=== PATIENT | male | born 1980 | race Caucasian/White ===

== ENCOUNTER 2016-11-23 16:48 | Observation (INO) | payer MEDICAID, OTHER ==
[2016-11-23] MEDS ORDERED: NS 1,000 ML IV ONE (17:15)
[2016-11-23] MEDS ORDERED: fentaNYL 100 MCG/2 ML INJ IVP ONE (17:15)
--- NOTE | 2016-11-23 17:17 | EDPHY ---
H & P Time Seen by Provider: 11/23/16 17:06 HPI/ROS: CHIEF COMPLAINT: Abdominal pain HISTORY OF PRESENT ILLNESS: 36-year-old male presents to the emergency department with right lower quadrant abdominal pain that began when he woke up this morning. Patient states that the pain is constant and getting worse. He denies flank pain. Denies testicular pain. Denies chest pain or difficulty breathing. Feels slightly nauseous although no vomiting. No diarrhea. Normal bowel movement today. No urinary symptoms. No reported trauma. He has never had pain like this in the past. REVIEW OF SYSTEMS: Constitutional: No fever, no chills. Eyes: No double or blurry vision. ENT: No sore throat. Respiratory: No cough, no shortness of breath. Cardiac: No chest pain. Gastrointestinal: Abdominal pain as above. No vomiting or diarrhea. Genitourinary: No dysuria. Musculoskeletal: No neck or back pain. Skin: No rashes. Neurological: No headache. Past Medical/Surgical History: Negative Social History: Single Smoking Status: Current some day smoker Physical Exam: General Appearance: Alert, no distress. Blood pressure 157/103, temperature 36.5degrees Eyes: Pupils equal and round. Extraocular motions are all intact. ENT: Mouth: Mucous membranes moist. Respiratory: No wheezing, rhonchi, or rales, lungs are clear to auscultation. Cardiovascular: Regular rate and rhythm. Gastrointestinal: Abdomen is soft. Tender to palpate especially in the right lower quadrant. There is no rebound, guarding or masses noted. No CVA tenderness bilaterally. Neurological: Alert and oriented x 3, cranial nerves II through XII grossly intact Skin: Warm and dry, no rashes. Musculoskeletal: Nontender to palpate along the cervical, thoracic or lumbar spine. Neck is supple. Extremities: Full range of motion and no peripheral edema. Psychiatric: Patient is oriented X 3, there is no agitation. Constitutional: Initial Vital Signs Temperature (C) 36.5 C 11/23/16 16:52 Heart Rate 82 11/23/16 16:52 Respiratory Rate 16 11/23/16 16:52 Blood Pressure 157/103 H 11/23/16 16:52 O2 Sat (%) 97 11/23/16 16:52 O2 Delivery Mode Room Air Allergies/Adverse Reactions: erythromycin base [Erythromycin Base] Allergy (Verified 10/31/13 10:06) Home Medications: Medication Instructions Recorded Adderall 10 MG (*) 11/23/16 Medical Decision Making - Diagnostics Imaging Results: Imaging Impressions Abdomen CT 11/23/16 18:42 Impression: No evidence for appendicitis. Results called and discussed with Pam Monaco on 11/23/2016 at 20:30 Imaging: Discussed imaging studies w/ health information systems technician Radiologist ED Course/Re-evaluation: 36-year-old male presents to the emergency department by private vehicle complaining of right lower quadrant abdominal pain. I was concerned about possible acute appendicitis. I recommended CT imaging of the abdomen and pelvis. I discussed pros and cons including radiation exposure. Under the patient agrees with CT scan. CT imaging of the abdomen pelvis revealed a possible normal appearing appendix. The patient did have elevated white blood cell count of nearly 16,000. He required IV pain medication including fentanyl and Dilaudid IV. I asked Dr. Jeremiah Sanford to come evaluate the patient since the patient was still symptomatic with inconclusive CT scan. Dr. Jeremiah Sanford feels that he has early acute appendicitis is taking the patient to the operating room. Patient was given 1 g of IV Invanz in the emergency department. Patient was kept NPO throughout his stay in the emergency department. The case was discussed with Dr. Lynn Gilmore, supervising physician, who did not directly evaluate the patient but agrees with treatment and plan. Differential Diagnosis: Including but not limited to acute appendicitis, mesenteric adenitis, diverticulitis, renal colic, kidney stone, urinary tract infection, pyelonephritis, muscular spasm, constipation, bowel obstruction - Data Points Laboratory Results: Laboratory Results 11/23/16 18:15 11/23/16 18:15 11/23/16 11/23/16 11/23/16 19:27 18:16 18:15 WBC RBC Hgb POC Hgb 17.3 gm/dL gm/dL (13.7-17.5) Hct POC Hct 51 % % (40-51) MCV MCH MCHC RDW Plt Count MPV Neut % (Auto) Lymph % (Auto) [place] % (Auto) Eos % (Auto) Baso % (Auto) Nucleat RBC Rel Count Absolute Neuts (auto) Absolute Lymphs (auto) Absolute Monos (auto) Absolute Eos (auto) Absolute Basos (auto) Absolute Nucleated RBC Immature Gran % Immature Gran # POC Sodium 142 mEq/L mEq/L (134-144) Sodium 138 mEq/L mEq/L (134-144) POC Potassium 4.3 mEq/L mEq/L (3.3-5.0) Potassium 4.5 mEq/L mEq/L (3.5-5.2) POC Chloride 102 mEq/L mEq/L (97-110) Chloride 103 mEq/L mEq/L (97-110) Carbon Dioxide 21 mEq/l L mEq/l (22-31) Anion Gap 14 mEq/L mEq/L (8-16) POC BUN 16 mg/dL mg/dL (7-23) BUN 15 mg/dL mg/dL (7-23) Creatinine 0.8 mg/dL mg/dL (0.7-1.3) POC Creatinine 0.9 mg/dL mg/dL (0.7-1.3) Estimated GFR > 60 Glucose 86 mg/dL mg/dL (70-100) POC Glucose 93 mg/dL mg/dL (70-100) Calcium 9.9 mg/dL mg/dL (8.5-10.4) Urine Color YELLOW Urine Appearance CLEAR Urine pH 6.0 (5.0-7.5) Ur Specific [place] 1.014 (1.002-1.030) Urine Protein NEGATIVE (NEGATIVE) Urine Ketones NEGATIVE (NEGATIVE) Urine Blood NEGATIVE (NEGATIVE) Urine Nitrate NEGATIVE (NEGATIVE) Urine Bilirubin NEGATIVE (NEGATIVE) Urine Urobilinogen NEGATIVE EU EU (0.2-1.0) Ur Leukocyte Esterase NEGATIVE (NEGATIVE) Urine RBC 3-5 /hpf H /hpf (0-3) Urine WBC 1-3 /hpf /hpf (0-3) Ur Epithelial Cells NONE SEEN /lpf /lpf (NONE-1+) Urine Glucose NEGATIVE (NEGATIVE) 11/23/16 18:15 WBC 15.85 10^3/uL H 10^3/uL (3.80-9.50) RBC 5.23 10^6/uL 10^6/uL (4.40-6.38) Hgb 15.8 g/dL g/dL (13.7-17.5) POC Hgb Hct 48.4 % % (40.0-51.0) POC Hct MCV 92.5 fL fL (81.5-99.8) MCH 30.2 pg pg (27.9-34.1) MCHC 32.6 g/dL g/dL (32.4-36.7) RDW 11.9 % % (11.5-15.2) Plt Count 228 10^3/uL 10^3/uL (150-400) MPV 10.8 fL fL (8.7-11.7) Neut % (Auto) 86.4 % H % (39.3-74.2) Lymph % (Auto) 4.9 % L % (15.0-45.0) [place] % (Auto) 7.2 % % (4.5-13.0) Eos % (Auto) 0.5 % L % (0.6-7.6) Baso % (Auto) 0.3 % % (0.3-1.7) Nucleat RBC Rel Count 0.0 % % (0.0-0.2) Absolute Neuts (auto) 13.70 10^3/uL H 10^3/uL (1.70-6.50) Absolute Lymphs (auto) 0.77 10^3/uL L 10^3/uL (1.00-3.00) Absolute Monos (auto) 1.14 10^3/uL H 10^3/uL (0.30-0.80) Absolute Eos (auto) 0.08 10^3/uL 10^3/uL (0.03-0.40) Absolute Basos (auto) 0.05 10^3/uL 10^3/uL (0.02-0.10) Absolute Nucleated RBC 0.00 10^3/uL 10^3/uL (0-0.01) Immature Gran % 0.7 % % (0.0-1.1) Immature Gran # 0.11 10^3/uL H 10^3/uL (0.00-0.10) POC Sodium Sodium POC Potassium Potassium POC Chloride Chloride Carbon Dioxide Anion Gap POC BUN BUN Creatinine POC Creatinine Estimated GFR Glucose POC Glucose Calcium Urine Color Urine Appearance Urine pH Ur Specific [place] Urine Protein Urine Ketones Urine Blood Urine Nitrate Urine Bilirubin Urine Urobilinogen Ur Leukocyte Esterase Urine RBC Urine WBC Ur Epithelial Cells Urine Glucose Medications Given: Discontinued Medications Fentanyl (Sublimaze) 50 mcg IVP EDNOW ONE Stop: 11/23/16 17:16 Last Admin: 11/23/16 18:33 Dose: 50 mcg Hydromorphone HCl (Dilaudid) 0.5 mg IVP EDNOW ONE Stop: 11/23/16 19:37 Last Admin: 11/23/16 19:59 Dose: 0.5 mg Hydromorphone HCl (Dilaudid) 0.5 mg IVP EDNOW ONE Stop: 11/23/16 22:17 Last Admin: 11/23/16 22:17 Dose: 0.5 mg Sodium Chloride (Ns) 1,000 mls @ 0 mls/hr IV ONCE ONE PRN Reason: Wide Open Stop: 11/23/16 17:16 Last Admin: 11/23/16 18:32 Dose: 1,000 mls Ertapenem 1 gm/ Sodium (Chloride) 100 mls @ 200 mls/hr IV EDNOW ONE PRN Reason: Protocol Stop: 11/23/16 22:16 Last Admin: 11/23/16 22:15 Dose: 100 mls Point of Care Test Results: 11/23/16 18:16 POC Sodium 142 POC Potassium 4.3 POC Chloride 102 POC BUN 16 POC Creatinine 0.9 POC Glucose 93 Departure - Departure Disposition: To OP Cath/Surgery Clinical Impression: Abdominal pain Qualifiers: Abdominal location: right lower quadrant Qualified Code(s): R10.31 - Right lower quadrant pain Condition: Good
[2016-11-23 18:42] LABS: % IMMATURE GRANULYOCYTES 0.7 % (0.0-1.1); ABSOLUTE IMMATURE GRANULOCYTES 0.11 10^3/uL (0.00-0.10); ADD DIFF? NO; ADD MORPH? NO; ADD SCAN? NO; ATYPICAL LYMPHOCYTE FLAG 0 (0-99); FRAGMENT RBC FLAG 0 (0-99); HEMATOCRIT 48.4 % (40.0-51.0); HEMOGLOBIN 15.8 g/dL (13.7-17.5); LEFT SHIFT FLG 0 (0-99); LIPEMIA HEMOLYSIS FLAG 80 (0-99); MEAN CELL HEMOGLOBIN 30.2 pg (27.9-34.1); MEAN CELL HEMOGLOBIN CONCENTR. 32.6 g/dL (32.4-36.7); MEAN CELL VOLUME 92.5 fL (81.5-99.8); MEAN PLATELET VOLUME 10.8 fL (8.7-11.7); PLATELET CLUMPS FLAG 10 (0-99); PLATELET COUNT 228 10^3/uL (150-400); RED BLOOD CELL COUNT 5.23 10^6/uL (4.40-6.38); RED CELL DISTRIBUTION WIDTH 11.9 % (11.5-15.2)
[2016-11-23 18:58] LABS: ANION GAP 14 mEq/L (8-16); CALCIUM 9.9 mg/dL (8.5-10.4); CARBON DIOXIDE 21 mEq/l (22-31); CHLORIDE 103 mEq/L (97-110); CREATININE 0.8 mg/dL (0.7-1.3); GLOMERULAR FILTRATION RATE > 60; GLUCOSE 86 mg/dL (70-100); POTASSIUM 4.5 mEq/L (3.5-5.2); SODIUM 138 mEq/L (134-144)
[2016-11-23] MEDS ORDERED: HYDROmorphONE/DILAUDID 1 MG/ML SYR IVP ONE ×2 (19:36→22:16)
[2016-11-23] MEDS ORDERED: IOPAMIDOL (ISOVUE-300) 100 ML BTL ONE (19:39)
[2016-11-23 19:44] LABS: COLOR YELLOW; LEUKOCYTE ESTERASE,URINE NEGATIVE (NEGATIVE); NITRITE,URINE NEGATIVE (NEGATIVE)
[2016-11-23] MEDS ORDERED: ERTAPENEM 1 GM in NS 100 ML IV ONE (21:47)
[2016-11-23] MEDS ORDERED: HYDROmorphONE/DILAUDID 1 MG/ML SYR ONE (21:53)
--- NOTE | 2016-11-23 23:09 | PDGENHP ---
History & Physical Chief Complaint: abd pain History of Present Illness: 36 male with rlq pain, tenderness, rebound and wbc 15k/ ct equivocal. admit for lap appe/ risks and options fully discussed Pertinent Past, Social, Family History: phx T&A. meds adderall. all erytromycin. ros -/ fam hx noncontrib. +tob Relevant Physical Exam: afebrile, no acute distress. heent nonicteric, no oral lesions, no nodes. chest clear/ cor rr/ extrem ok. abd tender rlq with rebound , no hernias. gen ok Cardiorespiratory Assessment: imp acute appe despite ct scan/ risks and options and he wishes to proceed. plan lap appe
[2016-11-23] MEDS ORDERED: MIDAZOLAM 2 MG/2 ML VIAL IVP ONE (23:23)
--- NOTE | 2016-11-23 23:24 | PDANEPAE ---
ANE Past Medical History - Pulmonary History Hx Oxygen in Use at Home: No - Endocrine History Hx Diabetes: No ANE Review of Systems Review of systems is: negative - Exercise capacity Exercise capacity: >=4 METS ANE Patient History - Allergies Allergies/Adverse Reactions: erythromycin base [Erythromycin Base] Allergy (Verified 10/31/13 10:06) - Home Medications Home Medications: Adderall 10 MG (*) 11/23/16 [Last Taken Unknown] - NPO status NPO Since - Liquids (Date): 11/23/16 NPO Since - Liquids (Time): 15:00 NPO Since - Solids (Date): 11/23/16 NPO Since - Solids (Time): 11:00 - Smoking Hx Smoking Status: Current some day smoker ANE Labs/Vital Signs - Labs Result Diagrams: 11/23/16 18:15 11/23/16 18:15 - Vital Signs Blood Pressure: 138/74 Heart Rate: 86 Respiratory Rate: 16 O2 Sat (%): 95 Height: 187.96 cm Weight: 104.326 kg ANE Physical Exam - Airway Neck exam: FROM Mallampati Score: Class 2 Mouth exam: normal dental/mouth exam - Pulmonary Pulmonary: no respiratory distress, no rales or rhonchi, clear to auscultation - Cardiovascular Cardiovascular: regular rate and rhythym, no murmur, rub, or gallop - ASA Status ASA Status: II ANE Anesthesia Plan Anesthesia Plan: general endotracheal anesthesia
[2016-11-23] MEDS ORDERED: MIDAZOLAM 2 MG/2 ML VIAL ONE (23:33)
[2016-11-23] MEDS ORDERED: fentaNYL 100 MCG/2 ML INJ ONE ×2 (23:34)
[2016-11-23] MEDS ORDERED: PROPOFOL 200 MG/20 ML VIAL ONE (23:35)
[2016-11-23] MEDS ORDERED: ROCURONIUM 50 MG/5 ML VIAL ONE (23:35)
[2016-11-23] MEDS ORDERED: LIDOCAINE 2% 5 ML SDV ONE (23:35)
[2016-11-23] MEDS ORDERED: KETOROLAC 30 MG/1 ML SDV ONE (23:35)
[2016-11-23] MEDS ORDERED: DEXAMETHASONE 4 MG/ML VIAL ONE ×2 (23:35)
[2016-11-23] MEDS ORDERED: KETAMINE 100 MG/10 ML SYR ONE (23:35)
[2016-11-23] MEDS ORDERED: ONDANSETRON 4 MG/2 ML VIAL ONE (23:35)
[2016-11-23] MEDS ORDERED: SUGAMMADEX SODIUM 200 MG/2 ML VIAL IVP ONE (23:35)
[2016-11-23] MEDS ORDERED: BUPIVACAINE 0.5% 30 ML SDV ONE (23:46)
[2016-11-23] MEDS ORDERED: LR 500 ML IV PRN (23:58)
[2016-11-23] MEDS ORDERED: MEPERIDINE 25 MG/ML SYR IVP PRN (23:58)
[2016-11-23] MEDS ORDERED: HYDROCODONE/APAP 5/325 TAB PO PRN (23:58)
[2016-11-23] MEDS ORDERED: NALOXONE HCL 0.4 MG/ML INJ IVP PRN (23:58)
[2016-11-23] MEDS ORDERED: PROMETHAZINE HCL 25 MG/ML INJ IVP PRN (23:58)
[2016-11-23] MEDS ORDERED: ONDANSETRON 4 MG/2 ML VIAL IVP PRN (23:58)
[2016-11-23] MEDS ORDERED: OXYCODONE/APAP 5/325 TAB PO PRN (23:58)
[2016-11-23] MEDS ORDERED: METOCLOPRAMIDE 10 MG/2 ML VIAL IVP PRN (23:58)
[2016-11-23] MEDS ORDERED: ENALAPRILAT DIHYDRATE 1.25 MG/ML VIAL IVP PRN (23:58)
[2016-11-24] MEDS ORDERED: ROCURONIUM 50 MG/5 ML VIAL ONE (00:19)
[2016-11-24] MEDS ORDERED: ESMOLOL HCL 100 MG/10 ML VIAL IV ONE ×2 (00:22)
--- NOTE | 2016-11-24 00:43 | POSTOPPROG ---
Post Op Note Date of Operation: 11/24/16 Surgeon: Jeremiah Sanford Anesthesiologist: larisa Anesthesia: GET(General Endotracheal) Pre-op Diagnosis: acute appe Post-op Diagnosis: same Indication: pain Procedure: lap appe Findings: acute, nonperforated appendicitis Inf/Abcess present in the surg proc area at time of surgery?: Yes Depth: Organ Space EBL: Minimal Complications: 0 Specimen(s): appendix
[2016-11-24] MEDS ORDERED: D5W 1/2 NS W/ 20 KCl/L 1,000 ML IV SCH (00:45)
[2016-11-24] MEDS ORDERED: LABETALOL HCL 50 MG/10 ML SYR ONE (00:47)
--- NOTE | 2016-11-24 00:49 | POSTANESTH ---
Post Anesthetic Evaluation Cardiovascular Status: Tx Hyper/Hypo-tension (Hypertensive on arrival-- labetalol given.) Respiratory Status: Normal, Stable, Similar to Pre-op Cond. Level of Consciousness/Mental Status: Can Participate in Eval, Alert and Oriented Pain Control: Adequate, Prn Tx Ordered Nausea/Vomiting Control: Adequate, Prn Tx Ordered Complications Possibly Related to Anesthesia: None Noted
[2016-11-24] MEDS: LABETALOL HCL 50 MG/10 ML SYR IVP PRN ×2 (00:51→01:05)
[2016-11-24] MEDS ORDERED: fentaNYL 100 MCG/2 ML INJ ONE (00:53)
[2016-11-24] MEDS: fentaNYL 100 MCG/2 ML INJ IVP PRN ×2 (00:54→00:59)
[2016-11-24] MEDS ORDERED: HYDROmorphONE/DILAUDID 1 MG/ML SYR ONE (01:13)
[2016-11-24] MEDS: HYDROmorphONE/DILAUDID 1 MG/ML SYR IVP PRN ×5 (01:15→05:59)
[2016-11-24] MEDS ORDERED: ONDANSETRON 4 MG/2 ML VIAL IVP PRN (02:15)
[2016-11-24] MEDS: OXYCODONE/APAP 5/325 TAB PO PRN ×4 (02:55→16:51)
[2016-11-24] MEDS: KETOROLAC 15 MG/1 ML SDV IVP SCH ×2 (05:59→12:30)
[2016-11-24 07:16] VITALS: RESP 14
[2016-11-24] MEDS ORDERED: ERTAPENEM 1 GM in NS 100 ML IV SCH (09:00)
[2016-11-24 15:59] VITALS: BP 135/70; PULSE 80; TEMP 98.2; O2SAT 93
== END 2016-11-24 16:56 | disposition home or self-care (01) ==
LOC: F3E 11-24 01:58
PROVIDERS: ADMIT Surgery; ATTEND Surgery
PROC: 0DTJ4ZZ Resection of Appendix, Percutaneous Endoscopic Approach (ICD-10-PCS; principal; 2016-11-23 20:30)
DX: K35.80 Unspecified acute appendicitis (principal)
CPT/HCPCS: 44970; 74177; 96361; 96365; 96375; 96376; 99285; G0378; 82947-QW; J1100; J1170; J1200; J1335; J1885; J2250; J2405; J2704; J3010; Q9967